=== PATIENT | male | born 1960 | race Caucasian/White ===

== ENCOUNTER 2018-06-24 01:21 | Emergency (ER) | payer OTHER ==
[~2018-06-24] VITALS: Ht 182.9 cm; Wt 90.9 kg
[2018-06-24] MEDS ORDERED: PERCOCET 5/325M1 TAB PO (03:07)
[2018-06-24 03:15] VITALS: BP 155/90
== END 2018-06-24 03:17 | disposition home or self-care (01) | DRG 605 ==
LOC: ED 01:21
DX: S70.01XA Contusion of right hip, initial encounter (principal); N13.2 Hydronephrosis with renal and ureteral calculous obstruction; E11.9 Type 2 diabetes mellitus without complications; G89.29 Other chronic pain; M54.9 Dorsalgia, unspecified; W19.XXXA Unspecified fall, initial encounter; F17.210 Nicotine dependence, cigarettes, uncomplicated